=== PATIENT | male | born 1990 | race African-American/Black ===

== ENCOUNTER 2016-10-13 23:18 | Emergency (ER) | payer MEDICAID, OTHER ==
[2016-10-14 00:22] LABS: Hematocrit 46 % (42-52); Mean Corpuscular HGB Conc 35 g/dl (31-36); Mean Corpuscular Hemoglobin 32 pg (27-31); Mean Corpuscular Volume 92 fL (80-94); Mean Platelet Volume 7 um3 (7.4-10.4); Red Blood Count 5.02 10^6/ul (4.0-5.4); Red Cell Distribution Width 13 % (10.5-15)
[2016-10-14 00:37] LABS: Albumin 4.7 g/dL (3.2-5.2); BUN/Creatinine Ratio 10.3 (8-20); Calcium 9.7 mg/dL (8.6-10.3); EGFR African American 95.5 (>60); EGFR Non-African American 74.2 (>60); Globulin 3.7 g/dL (2-4); Total Bilirubin 0.8 mg/dL (0.2-1.0); Total Protein 8.4 g/dL (6.4-8.9)
[2016-10-14 00:38] LABS: Potassium 3.7 mmol/L (3.5-5.0)
--- NOTE | 2016-10-14 01:15 | ED ---
Tramaine Napoles Aidan, scribed for Jax Fields on 10/13/16 at 2348 . Neurological HPI - HPI Summary HPI Summary: 26 y/o male presents to the ED with a complaint of acute, constant, moderate, worsening LUE and LLE numbness that has persisted for the past 2 weeks. He has no difficulty with ambulation. Additionally, he has some LUQ abdominal pain. - History of Current Complaint Chief Complaint: EDGeneral Stated Complaint: LT SIDE NUMBNESS Time Seen by Provider: 10/13/16 23:31 Hx Obtained From: Patient Onset/Duration: Gradual Onset, Started weeks ago, Still Present Timing: Constant Onset Severity: Moderate Current Severity: Moderate Number of Seizures: 0 Neurological Deficit Location: LUE, LLE Pain Intensity: 0 Pain Scale Used: 0-10 Numeric Character: Numbness/Tingling Syncope Timing: No Syncope Aggravating: Unknown Alleviating: Unknown Associated Signs and Symptoms: Negative: Negative - LUQ abdominal pain TPA Considered: No - Allergy/Home Medications Allergies/Adverse Reactions: Allergies Allergy/AdvReac Type Severity Reaction Status Date / Time No Known Allergies Allergy Verified 03/14/16 09:52 PMH/Surg Hx/FS Hx/Imm Hx Endocrine/Hematology History: Denies: Hx Anticoagulant Therapy, Hx Blood Disorders Respiratory History: Reports: Hx Asthma - WHEEZING AT TIMES GI History: Reports: Other GI Disorders - taking omeprazole, pressumed GERD Musculoskeletal History: Denies: Other Musculoskeletal History Sensory History: Denies: Hx Contacts or Glasses, Hx Hearing Aid Opthamlomology History: Denies: Hx Contacts or Glasses Neurological History: Denies: Other Neuro Impairments/Disorders - Surgical History Hx Anesthesia Reactions: No Infectious Disease History: Denies: Traveled Outside the [place] in Last 30 Days - Family History Known Family History: Positive: Unknown - he is not sure of his family's medical hx, Other - no malignant hyperthermia, no reaction to anesthesia Family History: Denies FHx malignant hyperthermia or reaction to anesthesia - Social History Occupation: Employed Full-time Lives: Alone Alcohol Use: Daily - 6 pack beer Alcohol Amount: 6 beers/ day Hx Substance Use: No Substance Use Type: Reports: None Smoking Status (MU): Current Every Day Smoker Type: Cigarettes Amount Used/How Often: 3 CIGS A DAY Have You Smoked in the Last Year: No Review of Systems Eyes: Negative ENT: Negative Cardiovascular: Negative Respiratory: Negative Positive: Abdominal Pain. Negative: Vomiting, Diarrhea, Nausea Genitourinary: Negative Musculoskeletal: Negative Skin: Negative Positive: Numbness. Negative: Headache, Weakness, Paresthesia, Syncope, Slurred Speech Psychological: Normal All Other Systems Reviewed And Are Negative: Yes Physical Exam Triage Information Reviewed: Yes Vital Signs On Initial Exam: Initial Vitals Temp Pulse Resp BP 98.1 F 74 18 127/74 10/13/16 23:25 10/13/16 23:25 10/13/16 23:25 10/13/16 23:25 Vital Signs Reviewed: Yes Appearance: Positive: Well-Appearing, No Pain Distress Skin: Positive: Warm, Skin Color Reflects Adequate Perfusion, Dry Head/Face: Positive: Normal Head/Face Inspection Eyes: Positive: EOMI, BC ENT: Positive: Normal ENT inspection Neck: Positive: Supple, Nontender Respiratory/Lung Sounds: Positive: Clear to Auscultation, Breath Sounds Present Cardiovascular: Positive: Normal, RRR, Pulses are Symmetrical in both Upper and Lower Extremities Abdomen Description: Positive: Nontender, Soft Bowel Sounds: Positive: Present Musculoskeletal: Positive: Normal, Strength/ROM Intact Neurological: Positive: Normal, Sensory/Motor Intact, Alert, Oriented to Person Place, Time Psychiatric: Positive: Normal, Affect/Mood Appropriate AVPU Assessment: Alert Diagnostics - Vital Signs Vital Signs Temp Pulse Resp BP 10/13/16 23:25 98.1 F 74 18 127/74 - Laboratory Lab Results: Lab Results 10/14/16 10/14/16 Range/Units 00:05 00:05 WBC 5.0 (3.5-10.8) 10^3/ul RBC 5.02 (4.0-5.4) 10^6/ul Hgb 16.0 (14.0-18.0) g/dl Hct 46 (42-52) % MCV 92 (80-94) fL MCH 32 H (27-31) pg MCHC 35 (31-36) g/dl RDW 13 (10.5-15) % Plt Count 318 (150-450) 10^3/ul MPV 7 L (7.4-10.4) um3 Neut % (Auto) 31.4 L (38-83) % Lymph % (Auto) 51.5 H (25-47) % [place] % (Auto) 9.6 H (1-9) % Eos % (Auto) 6.5 H (0-6) % Baso % (Auto) 1.0 (0-2) % Absolute Neuts (auto) 1.6 (1.5-7.7) 10^3/ul Absolute Lymphs (auto) 2.6 (1.0-4.8) 10^3/ul Absolute Monos (auto) 0.5 (0-0.8) 10^3/ul Absolute Eos (auto) 0.3 (0-0.6) 10^3/ul Absolute Basos (auto) 0 (0-0.2) 10^3/ul Absolute Nucleated RBC 0.01 10^3/ul Nucleated RBC % 0.2 Sodium 135 (133-145) mmol/L Potassium 3.7 (3.5-5.0) mmol/L Chloride 99 L (101-111) mmol/L Carbon Dioxide 28 (22-32) mmol/L Anion Gap 8 (2-11) mmol/L BUN 12 (6-24) mg/dL Creatinine 1.17 (0.67-1.17) mg/dL Est GFR ( Amer) 95.5 (>60) Est GFR (Non-Af Amer) 74.2 (>60) BUN/Creatinine Ratio 10.3 (8-20) Glucose 77 (70-100) mg/dL Calcium 9.7 (8.6-10.3) mg/dL Total Bilirubin 0.80 (0.2-1.0) mg/dL AST 15 (13-39) U/L ALT 29 (7-52) U/L Alkaline Phosphatase 53 (34-104) U/L Troponin I 0.00 (<0.04) ng/mL Total Protein 8.4 (6.4-8.9) g/dL Albumin 4.7 (3.2-5.2) g/dL Globulin 3.7 (2-4) g/dL Albumin/Globulin Ratio 1.3 (1-3) Lipase 34 (11.0-82.0) U/L Result Diagrams: 10/14/16 00:05 10/14/16 00:05 Lab Statement: Any lab studies that have been ordered have been reviewed, and results considered in the medical decision making process. - Radiology CHEST X-RAY Xray Interpretation: No Acute Changes - IMPRESSION: negative examination Radiology Interpretation Completed By: ED Physician - Dr. Fields - CT BRAIN CT CT Interpretation: No Acute Changes - IMPRESSION: Negative examination CT Interpretation Completed By: ED Physician - Dr. Fields - EKG EKG 0056 Cardiac Rate: Bradycardia - 55 EKG Rhythm: Sinus Bradycardia EKG Interpretation: SINUS BRADYCARDIA Course/Dx - Course Course Of Treatment: 26 y/o male presents with LUE and LLE numbness that seems to be worsening. Additionally, he mentions some LUQ abdominal pain. Labs and imaging were negative. Advised follow up with neurology for further evaluation. The diagnosis is paresthesia. - Diagnoses Provider Diagnoses: Paresthesia Discharge - Discharge Plan Condition: Stable Disposition: HOME Discharge Disposition Comment: Please follow up with neurology within 3 days. Referrals: Justen García MD [Primary Care Provider] - Rufus Lundy MD [Medical Doctor] - The documentation as recorded by the Tramaine chaney Aidan accurately reflects the service I personally performed and the decisions made by Diamond sanches Emmanuel.
[2016-10-14 01:35] VITALS: BP 128/72
--- NOTE | 2016-10-14 07:43 | RAD ---
HISTORY: Numbness, left-sided body COMPARISONS: January 09, 2013 TECHNIQUE: Multiple contiguous axial CT scans were obtained of the head without intravenous contrast. FINDINGS: HEMORRHAGE/INFARCT: There is no hemorrhage or acute infarct. MASSES/SHIFT: There is no mass or shift. EXTRA-AXIAL SPACES: There are no extra-axial fluid collections. SULCI AND VENTRICLES: The sulci and ventricles are normal in size and position for the patient's stated age. CEREBRUM: There are no focal parenchymal abnormalities. BRAINSTEM: There are no focal parenchymal abnormalities. CEREBELLUM: There are no focal parenchymal abnormalities. VESSELS: The vessels are grossly normal. PARANASAL SINUSES: The paranasal sinuses are clear. ORBITS: The orbits are unremarkable. BONES AND SOFT TISSUE: No bone or soft tissue abnormalities are noted. OTHER: None IMPRESSION: NO ACUTE INTRACRANIAL PATHOLOGY.
--- NOTE | 2016-10-14 07:44 | RAD ---
HISTORY: Chest pain COMPARISONS: None VIEWS: 2: Frontal dual-energy and lateral views of the chest. FINDINGS: CARDIOMEDIASTINAL SILHOUETTE: The cardiomediastinal silhouette is normal. CASSIDY: The cassidy are normal. PLEURA: The costophrenic angles are sharp. No pleural abnormalities are noted. LUNG PARENCHYMA: There is hyperinflation with flattening of the diaphragm and expansion of the retrosternal airspace. ABDOMEN: The upper abdomen is clear. There is no subphrenic gas. BONES AND SOFT TISSUES: No bone or soft tissue abnormalities are noted. OTHER: None. IMPRESSION: HYPERINFLATION WHICH CAN BE SEEN WITH COPD OR REACTIVE AIRWAY DISEASE.
== END 2016-10-14 01:30 | disposition home or self-care (01) ==
LOC: ED 23:18
DX: R20.9 Unspecified disturbances of skin sensation (principal); R10.9 Unspecified abdominal pain; F17.210 Nicotine dependence, cigarettes, uncomplicated
CPT/HCPCS: 36415; 70450; 71020; 80053; 83690; 84484; 85025; 93005; 99283

== ENCOUNTER 2018-03-02 17:37 | Emergency (ER) | payer OTHER ==
[2018-03-02] MEDS ORDERED: Ketorolac INJ* 30 MG/ML 1 ML VIAL IV PUSH ONE (20:17)
--- NOTE | 2018-03-02 20:17 | ED ---
Abdominal Pain/Male - HPI Summary HPI Summary: 28 y/o male presents to the ED acute on chronic pain, for 3 years, worse in the past several days. The pain is described as a severe, constant pain in the LUQ under the rib cage. Pain has radiated to the R upper ABD in the past several days as well. Associated sx: nauseous several days ago, diarrhea. The pain is aggravated with deep breaths. PT has dicyclimine and dentoprozol and metroprazole, with no alleviation of symptoms. Pt states he has imaging and tests scheduled with his PCP in March. Daily smoker, daily EtOH use. - History of Current Complaint Chief Complaint: EDAbdPain Stated Complaint: CHEST WALL PAIN Time Seen by Provider: 03/02/18 20:09 Hx Obtained From: Patient Onset/Duration: Lasting Weeks, Still Present Timing: Constant Pain Intensity: 10 Pain Scale Used: 0-10 Numeric Location: Discrete At: LUQ Radiates: Yes Radiates to: Other - R side ABD Aggravating Factor(s): Deep Breaths Alleviating Factor(s): Nothing Associated Signs And Symptoms: Positive: Nausea, Diarrhea - Allergies/Home Medications Allergies/Adverse Reactions: Allergies Allergy/AdvReac Type Severity Reaction Status Date / Time No Known Allergies Allergy Verified 03/02/18 17:43 PMH/Surg Hx/FS Hx/Imm Hx Previously Healthy: No Endocrine/Hematology History: Denies: Hx Anticoagulant Therapy, Hx Blood Disorders Respiratory History: Reports: Hx Asthma - WHEEZING AT TIMES GI History: Reports: Other GI Disorders - taking omeprazole, pressumed GERD Musculoskeletal History: Denies: Other Musculoskeletal History Sensory History: Denies: Hx Contacts or Glasses, Hx Hearing Aid Opthamlomology History: Denies: Hx Contacts or Glasses Neurological History: Denies: Other Neuro Impairments/Disorders - Surgical History Hx Anesthesia Reactions: No Infectious Disease History: No Infectious Disease History: Denies: Traveled Outside the [place] in Last 30 Days - Family History Known Family History: Positive: Other - no malignant hyperthermia, no reaction to anesthesia Family History: Denies FHx malignant hyperthermia or reaction to anesthesia - Social History Alcohol Use: Daily - 6 pack beer Alcohol Amount: 6 beers/ day Hx Substance Use: No Substance Use Type: Reports: None Smoking Status (MU): Current Every Day Smoker Type: Cigarettes Amount Used/How Often: 3 CIGS A DAY Have You Smoked in the Last Year: No Review of Systems Constitutional: Negative Eyes: Negative ENT: Negative Cardiovascular: Negative Respiratory: Negative Positive: Abdominal Pain, Diarrhea, Nausea Genitourinary: Negative Musculoskeletal: Negative Skin: Negative Positive: Headache Psychological: Normal All Other Systems Reviewed And Are Negative: Yes Physical Exam - Summary Physical Exam Summary: Appearance: Well-appearing, Well-nourished, lying in bed comfortably Skin: Warm, dry, no obvious rash Eyes: sclera anicteric, no conjunctival pallor ENT: mucous membranes moist, pharynx appears normal Neck: Supple, nontender Respiratory: Clear to auscultation, no signs of respiratory distress Cardiovascular: Normal S1, S2. No murmurs. Normal distal pulses in tibial and radial bilaterally. Abdomen: Soft, nontender, normal active bowel sounds present Musculoskeletal: Normal, Strength/ROM Intact Neurological: A&Ox3, awake and alert, mentation is normal, speech is fluent and appropriate Psychiatric: affect is normal, does not appear anxious or depressed Triage Information Reviewed: Yes Vital Signs On Initial Exam: Initial Vitals Temp Pulse Resp BP Pulse Ox 99.6 F 60 16 150/81 99 03/02/18 17:43 03/02/18 17:43 03/02/18 17:43 03/02/18 17:43 03/02/18 17:43 Vital Signs Reviewed: Yes Diagnostics - Vital Signs Vital Signs Temp Pulse Resp BP Pulse Ox 03/02/18 19:40 98.3 F 58 16 140/78 100 03/02/18 17:43 99.6 F 60 16 150/81 99 - Laboratory Result Diagrams: 03/02/18 20:52 03/02/18 20:52 Lab Statement: Any lab studies that have been ordered have been reviewed, and results considered in the medical decision making process. - CT ABD/PEL CT CT Interpretation: No Acute Changes - No acute intraabdominal abnormality CT Interpretation Completed By: Radiologist - ED physician reviews and agrees Abdominal Pain Fem Course/Dx - Course Assessment/Plan: 28 y/o male presents to ED c/o acute on chronic ABD pain, worse in the past several days. ABD CT negative. Blood work without any significant abnormalitiies. PT will be d/c home. - Diagnoses Provider Diagnoses: Upper abdominal pain Discharge - Sign-Out/Discharge Documenting (check all that apply): Patient Departure - Discharge Plan Condition: Good Disposition: HOME Patient Education Materials: Chronic Abdominal Pain (ED) Referrals: Justen García MD [Primary Care Provider] - Additional Instructions: Your CT scan and lab work tonight are normal, so I am not sure what is causing your pain but it does not appear to be immediately dangerous. Continue to followup with your PCP, you may be referred to a manager quantitative for further testing. - Billing Disposition and Condition Condition: GOOD Disposition: Home - Attestation Statements Document Initiated by Manju: Yes Documenting Scribe: Yoni Davis Provider For Whom Manju is Documenting (Include Credential): Isma Lopez MD Scribe Attestation: Yoni Napoles scribed for Isma Lopez MD on 03/06/18 at 1839. Scribe Documentation Reviewed: Yes Provider Attestation: The documentation as recorded by the Yoni chaney accurately reflects the service I personally performed and the decisions made by me, Isma Lopez MD
[2018-03-02 20:59] LABS: ABS Basophils 0 10^3/ul (0-0.2); ABS Eosinophils 0.2 10^3/ul (0-0.6); ABS Lymphocytes 2.8 10^3/ul (1.0-4.8); ABS Monocytes 0.4 10^3/ul (0-0.8); ABS Neutrophils 2.2 10^3/ul (1.5-7.7); ABS Nucleated RBC 0 10^3/ul; Eosinophil % 3.7 % (0-6); Hematocrit 46 % (42-52); Lymphocyte % 49.5 % (25-47); Mean Corpuscular HGB Conc 35 g/dl (31-36); Mean Corpuscular Hemoglobin 33 pg (27-31); Mean Corpuscular Volume 94 fL (80-94); Mean Platelet Volume 6.7 um3 (7.4-10.4); Nucleated Red Blood Cells % 0; Platelet Count 293 10^3/ul (150-450); Red Cell Distribution Width 12 % (10.5-15); White Blood Count 5.7 10^3/ul (3.5-10.8)
[2018-03-02 21:20] LABS: EGFR Non-African American 81.1 (>60)
[2018-03-02] MEDS ORDERED: Iohexol 300* (CONTRAST) 10 ML SDV IV ONE (21:33)
--- NOTE | 2018-03-02 22:53 | RAD ---
EXAM: CT Abdomen and Pelvis With Intravenous Contrast EXAM DATE/TIME: 03/02/2018 10:14 PM CLINICAL HISTORY: 28 years old, male; Pain; Abdominal pain; Localized; Left upper quadrant (luq); Additional info: Luq pain. Pain under ribcage, both side. Ongoing for three years. HX of such, chronic issue. Went primary: Has orders for imaging and blood work. States his billurib was a little high TECHNIQUE: Axial computed tomography images of the abdomen and pelvis with intravenous contrast. All CT scans at this facility use at least one of these dose optimization techniques: automated exposure control; mA and/or kV adjustment per patient size (includes targeted exams where dose is matched to clinical indication); or iterative reconstruction. Coronal and sagittal reformatted images were created and reviewed. CONTRAST: 101 ml of [id number] administered intravenously. COMPARISON: DX HIP LT HIP LEFT 2 VIEWS AND PELVIS 06/24/2012 2:08 PM FINDINGS: Lower thorax: No acute findings. ABDOMEN: Liver: Normal. No mass. Gallbladder and bile ducts: Normal. No calcified stones. No ductal dilation. Pancreas: Normal. No ductal dilation. Spleen: Normal. No splenomegaly. Adrenals: Normal. No mass. Kidneys and ureters: Normal. No hydronephrosis. Stomach and bowel: Normal. No obstruction. No mucosal thickening. Appendix: No evidence of appendicitis. PELVIS: Bladder: Unremarkable as visualized. Reproductive: Unremarkable as visualized. ABDOMEN and PELVIS: Intraperitoneal space: Normal. No free air. No significant fluid collection. Bones/joints: No acute fracture. No dislocation. Soft tissues: Unremarkable. Vasculature: Normal. No abdominal aortic aneurysm. Lymph nodes: Normal. No enlarged lymph nodes. IMPRESSION: No acute intra-abdominal abnormality. To contact [facility] with a general question: Operations Center - [phone] For direct physician to physician contact: Physician Hotline - [phone] [facility] ([facility] Facility ID #[id number])
[2018-03-02 23:10] VITALS: BP 127/85
== END 2018-03-02 23:38 | disposition home or self-care (01) ==
LOC: ED 17:37
DX: R10.9 Unspecified abdominal pain (principal); G89.29 Other chronic pain
CPT/HCPCS: 36415; 74177; 80053; 83690; 85025; 96374; 96375; 99283; J1885; Q9967

== ENCOUNTER 2019-05-13 13:49 | Emergency (ER) | payer SELFPAY ==
--- NOTE | 2019-05-13 17:02 | ED ---
Shortness of Breath - HPI Summary HPI Summary: 29 year old male presents with shortness of breath for the past 3 weeks. He states he has chronic epigastric pain. he's had a couple endoscopes and is on omeprazole and ranitidine. he states they can not find a cause for his epigastric pain. He states he does have a history of asthma. Has been using his inhaler with minimal relief. He admits to sharp pain in the center of his chest. Pain is worse with deep breath. He denies any recent travel. He does smoke cigarettes. - History of Current Complaint Chief Complaint: EDGeneral Time Seen by Provider: 05/13/19 16:32 - Allergy/Home Medications Allergies/Adverse Reactions: Allergies Allergy/AdvReac Type Severity Reaction Status Date / Time No Known Allergies Allergy Verified 05/13/19 13:58 Home Medications: Home Medications Fluticasone/Vilanterol MDI(NF) [Breo Ellipta MDI (NF)] 1 puff INH DAILY [History Confirmed 05/13/19] PMH/Surg Hx/FS Hx/Imm Hx Endocrine/Hematology History: Denies: Hx Anticoagulant Therapy, Hx Blood Disorders, Hx Diabetes Cardiovascular History: Denies: Hx Hypertension Respiratory History: Reports: Hx Asthma - WHEEZING AT TIMES GI History: Reports: Other GI Disorders - taking omeprazole, pressumed GERD History: Denies: Hx Renal Disease Musculoskeletal History: Denies: Other Musculoskeletal History Sensory History: Denies: Hx Contacts or Glasses, Hx Hearing Aid Opthamlomology History: Denies: Hx Contacts or Glasses Neurological History: Denies: Other Neuro Impairments/Disorders - Surgical History Hx Anesthesia Reactions: No - Immunization History Date of Influenza Vaccine: none Infectious Disease History: No Infectious Disease History: Denies: Traveled Outside the [place] in Last 30 Days - Family History Known Family History: Positive: Other - no malignant hyperthermia, no reaction to anesthesia Family History: Denies FHx malignant hyperthermia or reaction to anesthesia - Social History Alcohol Use: Daily Alcohol Amount: 6 beers/ day Hx Substance Use: No Substance Use Type: Reports: None Smoking Status (MU): Current Every Day Smoker Type: Cigarettes Amount Used/How Often: 3 CIGS A DAY Have You Smoked in the Last Year: No Review of Systems Negative: Fever Positive: Chest Pain Positive: Shortness Of Breath Positive: Abdominal Pain, Nausea. Negative: Vomiting All Other Systems Reviewed And Are Negative: Yes Physical Exam Triage Information Reviewed: Yes Vital Signs On Initial Exam: Initial Vitals Temp Pulse Resp BP Pulse Ox 99.3 F 73 14 138/95 99 05/13/19 13:56 05/13/19 13:56 05/13/19 13:56 05/13/19 13:56 05/13/19 13:56 Vital Signs Reviewed: Yes Appearance: Positive: Well-Appearing Skin: Positive: Warm, Dry Head/Face: Positive: Normal Head/Face Inspection Eyes: Positive: Normal, Conjunctiva Clear ENT: Positive: Pharynx normal Respiratory/Lung Sounds: Positive: Clear to Auscultation, Breath Sounds Present Cardiovascular: Positive: Normal, RRR Abdomen Description: Positive: Nontender, Soft Bowel Sounds: Positive: Present Musculoskeletal: Positive: Normal Neurological: Positive: Normal Psychiatric: Positive: Normal Procedures - Sedation Patient Received Moderate/Deep Sedation with Procedure: No Diagnostics - Vital Signs Vital Signs Temp Pulse Resp BP Pulse Ox 05/13/19 13:56 99.3 F 73 14 138/95 99 - Laboratory Result Diagrams: 05/13/19 17:10 05/13/19 17:10 Lab Statement: Any lab studies that have been ordered have been reviewed, and results considered in the medical decision making process. - Radiology chest Radiology Interpretation Completed By: Radiologist Summary of Radiographic Findings: IMPRESSION: NO EVIDENCE FOR ACTIVE CARDIOPULMONARY DISEASE. - EKG No standard instances Cardiac Rate: NL EKG Rhythm: Sinus Rhythm EKG Comparison: No Significant Change Summary of EKG Findings: sinus rhythm Re-Evaluation - Re-Evaluation First Eval Re-Evaluation Time: 18:05 Change: Improved Comment: feeling better after breathing treatment Course/Dx - Course Course Of Treatment: 29 year old male presents with shortness of breath for the past 3 weeks. He states he has chronic epigastric pain. he's had a couple endoscopes and is on omeprazole and ranitidine. he states they can not find a cause for his epigastric pain. He states he does have a history of asthma. Has been using his inhaler with minimal relief. He admits to sharp pain in the center of his chest. Pain is worse with deep breath. He denies any recent travel. He does smoke cigarettes. On exam decreased breath sounds heard. Reproducible chest pain and epigastric pain. ekg sinus rhythm. troponin zero. d- dimer neg. gave breathing treatment with improvement. will give steriod for potential asthma excerabation. told follow up with his GI dr about epigastric pain as is chronic problem. patient understand and agrees with plan. - Diagnoses Differential Diagnosis/HQI/PQRI: Positive: Bronchitis, Pneumonia, Pulmonary Embolism Provider Diagnoses: Shortness of breath, Epigastric pain Discharge ED - Sign-Out/Discharge Documenting (check all that apply): Patient Departure - Discharge Plan Condition: Good Disposition: HOME Prescriptions: predniSONE 50 mg TAB [Deltasone 50 mg TAB] 50 mg PO DAILY #4 tab Patient Education Materials: Asthma (ED) Referrals: Adalgisa Cheatham MD [Primary Care Provider] - Additional Instructions: Use inhaler up to two puffs every 4 hours for cough and wheezing Take steroid once a day for 4 more days starting tomorrow Take Tylenol for pain every 6 hours Follow up with primary within 5 days Return to ED if develop any new or worsening symptoms - Billing Disposition and Condition Condition: GOOD Disposition: Home
[2019-05-13] MEDS: Albuterol/Ipratropium NEB.SOL* Albuterol 2.5 MG/Ipratropium 0.5 MG 3 ML INH ONE (17:19)
[2019-05-13 17:26] LABS: ABS Eosinophils 0.1 10^3/ul (0-0.6); ABS Monocytes 0.5 10^3/ul (0-0.8); ABS Neutrophils 2.6 10^3/ul (1.5-7.7); Eosinophil % 1.3 %; Hematocrit 48 % (42-52); Hemoglobin 16.7 g/dL (14.0-18.0); Lymphocyte % 37.9 %; Mean Corpuscular HGB Conc 35 g/dL (31-36); Mean Corpuscular Hemoglobin 33 pg (27-31); Mean Corpuscular Volume 95 fL (80-94); Nucleated Red Blood Cells % 0.2; Platelet Count 288 10^3/uL (150-450); Red Blood Count 5.07 10^6 /uL (4.18-5.48); Red Cell Distribution Width 13 % (10-15); White Blood Count 5.2 10^3/uL (3.5-10.8)
[2019-05-13] MEDS: Lidocaine 2% VISCOUS* 15 ML UDC PO ONE (17:37)
[2019-05-13] MEDS: Al Hydrox/Mg Hydrox/Simet LIQ* 30 ML UDC PO ONE (17:37)
[2019-05-13 17:41] LABS: Albumin 4.6 g/dL (3.2-5.2); Anion Gap 7 mmol/L (2-11); CO2 Carbon Dioxide 32 mmol/L (22-32); Calcium 9.3 mg/dL (8.6-10.3); Chloride 102 mmol/L (101-111); Potassium 3.8 mmol/L (3.5-5.0); Sodium 141 mmol/L (135-145)
[2019-05-13 17:47] LABS: ALT 17 U/L (7-52); AST 16 U/L (13-39); Albumin/Globulin Ratio 1.4 (1-3); Alkaline Phosphatase 55 U/L (34-104); BUN/Creatinine Ratio 11.6 (8-20); Blood Urea Nitrogen 11 mg/dL (6-24); C Reactive Protein < 1.00 mg/L (<8.01); EGFR African American 111.9 (>60); EGFR Non-African American 92.5 (>60); Globulin 3.3 g/dL (2-4); Glucose 75 mg/dL (70-100); Total Protein 7.9 g/dL (6.4-8.9); Troponin I 0.01 ng/mL (<0.03)
[2019-05-13 18:18] VITALS: BP 124/68
== END 2019-05-13 18:16 | disposition home or self-care (01) ==
LOC: ED 13:49
DX: R06.02 Shortness of breath (principal); R10.13 Epigastric pain; Z79.899 Other long term (current) drug therapy; J45.909 Unspecified asthma, uncomplicated; F17.210 Nicotine dependence, cigarettes, uncomplicated
CPT/HCPCS: 36415; 71046; 80053; 84484; 85025; 85379; 86140; 93005; 99282; A9270-GY; J7512